=== PATIENT | female | born 1995 | race Caucasian/White ===

== ENCOUNTER 2016-06-17 19:38 | Emergency (ER) | payer OTHER ==
[~2016-06-17] VITALS: Ht 172.7 cm; Wt 92.8 kg
[2016-06-17 19:52] VITALS: BP 136/78
== END 2016-06-17 21:38 | disposition home or self-care (01) ==
LOC: EME 19:38
DX: S83.91XA Sprain of unspecified site of right knee, initial encounter (principal); W10.9XXA Fall (on) (from) unspecified stairs and steps, initial encounter
CPT/HCPCS: 73564; 99281; 99284